=== PATIENT | female | born 1985 | race Two or more races ===

== ENCOUNTER → 2016-03-13 | Outpatient (REF) | payer OTHER ==
[~2016-03-13] MED LIST: no home meds
== END ==
LOC: M SFHCLERA 12:35
PROVIDERS: ATTEND Physician Assistant
DX: J02.9 Acute pharyngitis, unspecified (principal)

== ENCOUNTER 2019-07-23 07:11 | Emergency (ER) | payer OTHER ==
[~2019-07-23] VITALS: Ht 165.1 cm; Wt 79.5 kg
[2019-07-23 09:50] VITALS: BP 123/54
--- NOTE | 2019-07-23 09:51 | REP ---
PELVIC ULTRASOUND: Real-time sonographic evaluation of pelvis performed utilizing transabdominal and endovaginal technique. Uterus measures 10.1 x 5.0 x 7.0 cm. Endometrial thickness is 13 mm. No intrauterine gestational sac is seen. Right ovary measures 2.4 x 1.7 x 2.7 cm and left ovary 3.8 x 2.1 x 3.6 cm. Complex cystic structure left ovary measures 2.1 x 1.6 x 2.0 cm, possibly representing a complex corpus luteum. There is no evidence of ovarian torsion with duplex Doppler evaluation. There is no other evidence of adnexal mass or free fluid. Given beta hCG value of 258, differential diagnosis would include very early intrauterine , missed AB, or ectopic . Suggest correlation with serial quantitative beta hCG values and followup ultrasound as necessary. Electronically Signed by Lopez Eagle MD 07/26/2019 09:33 P
[2020-03-14] MEDS ORDERED: FAMO20TA PO (10:07)
== END 2019-07-23 09:51 | disposition home or self-care (01) ==
LOC: M ED 07:11
DX: Z34.81 Encounter for supervision of other normal pregnancy, first trimester (principal)

== ENCOUNTER 2019-08-06 07:52 | Emergency (ER) | payer OTHER ==
[~2019-08-06] VITALS: Ht 165.1 cm; Wt 75.3 kg
[2019-08-06] MEDS ORDERED: METOCLOPRAMIDE INJ 10MG/2ML VIAL (J2765 PER 1) IV ONE (08:30)
[2019-08-06] MEDS ORDERED: ACETAMINOPHEN 500 MG TAB PO ONE (08:30)
[2019-08-06] MEDS ORDERED: diphenhydrAMINE 50MG/ML VIAL (J1200) IV ONE (08:30)
[2019-08-06] MEDS ORDERED: NS 1,000 ML IV ONE (08:30)
[2019-08-06 09:26] LABS: BASO % 0.3 % (0.0-1.0); EOS # 0.1 10^3/uL (0.0-0.5); EOS % 1.2 % (0.0-3.0); HEMATOCRIT 35.7 % (36.0-47.0); HEMOGLOBIN 12.7 g/dl (12.0-15.5); LYMPH # 1.4 10^3/uL (1.5-5.0); LYMPH % 22.6 % (24.0-44.0); MEAN CORPUSCULAR HEMOGLOBIN 32.8 pg (27.0-33.0); MEAN CORPUSCULAR HGB CONC 35.6 g/dl (32.0-36.5); MEAN CORPUSCULAR VOLUME 92.2 fl (80.0-96.0); MONO # 0.5 10^3/uL (0.0-0.8); MONO % 8.2 % (0.0-5.0); NEUTROPHILS % 67.4 % (36.0-66.0); PLATELET COUNT, AUTOMATED 172 10^3/uL (150-450); RED BLOOD COUNT 3.87 10^6/uL (4.00-5.40)
[2019-08-06 10:18] LABS: ALBUMIN 3.6 GM/DL (3.2-5.2); ALT/SGPT 22 U/L (12-78); BILIRUBIN,DIRECT 0.1 MG/DL (0.0-0.2); BILIRUBIN,TOTAL 0.5 MG/DL (0.2-1.0); BLOOD UREA NITROGEN 17 MG/DL (7-18); CALCIUM LEVEL 8.6 MG/DL (8.5-10.1); CARBON DIOXIDE LEVEL 24 MEQ/L (21-32); CHLORIDE LEVEL 109 MEQ/L (98-107); CREATININE FOR GFR 0.59 MG/DL (0.55-1.30); GLOMERULAR FILTRATION RATE > 60.0 (>60); GLUCOSE, FASTING 80 MG/DL (70-100); HCG, SERUM QUANTITATIVE 28807 MIU/ML; LIPASE 141 U/L (73-393); POTASSIUM SERUM 3.8 MEQ/L (3.5-5.1); SODIUM LEVEL 138 MEQ/L (136-145); TOTAL PROTEIN 6.6 GM/DL (6.4-8.2)
[2019-08-06 10:51] VITALS: BP 107/58
== END 2019-08-06 10:50 | disposition home or self-care (01) ==
LOC: M ED 07:52
DX: O99.350 Diseases of the nervous system complicating pregnancy, unspecified trimester (principal); G44.209 Tension-type headache, unspecified, not intractable; O99.340 Other mental disorders complicating pregnancy, unspecified trimester; F41.9 Anxiety disorder, unspecified; O99.320 Drug use complicating pregnancy, unspecified trimester; F12.10 Cannabis abuse, uncomplicated; Z3A.00 Weeks of gestation of pregnancy not specified
CPT/HCPCS: 80048; 80076; 83690; 84702; 85025; 96374; 96375; 99284; J1200; J2765

== ENCOUNTER 2019-08-09 21:06 | Emergency (ER) | payer OTHER ==
[~2019-08-09] VITALS: Ht 165.1 cm; Wt 75.0 kg
[2019-08-09 21:06] VITALS: BP 123/68
[2019-08-09] MEDS ORDERED: [UNRECOGNIZED DRUG - OTHER] PO (21:28)
[2019-08-09] MEDS ORDERED: DIPH25TA4 PO (21:28)
[2019-08-09] MEDS ORDERED: NS 1,000 ML IV ONE (22:15)
[2019-08-09] MEDS ORDERED: METOCLOPRAMIDE INJ 10MG/2ML VIAL (J2765 PER 1) IV ONE (22:15)
[2019-08-09 22:44] LABS: BASO % 0.4 % (0.0-1.0); EOS # 0.1 10^3/uL (0.0-0.5); HEMATOCRIT 35.4 % (36.0-47.0); HEMOGLOBIN 12.6 g/dl (12.0-15.5); LYMPH # 1.7 10^3/uL (1.5-5.0); LYMPH % 20.9 % (24.0-44.0); MEAN CORPUSCULAR HEMOGLOBIN 32.9 pg (27.0-33.0); MEAN CORPUSCULAR HGB CONC 35.6 g/dl (32.0-36.5); MEAN CORPUSCULAR VOLUME 92.4 fl (80.0-96.0); MONO # 0.6 10^3/uL (0.0-0.8); NEUTROPHILS # 5.6 10^3/uL (1.5-8.5); NEUTROPHILS % 70.3 % (36.0-66.0); PLATELET COUNT, AUTOMATED 185 10^3/uL (150-450); RED BLOOD COUNT 3.83 10^6/uL (4.00-5.40)
[2019-08-09 23:13] LABS: ALBUMIN 3.8 GM/DL (3.2-5.2); BILIRUBIN,DIRECT 0.2 MG/DL (0.0-0.2); BILIRUBIN,TOTAL 0.7 MG/DL (0.2-1.0); TOTAL PROTEIN 6.9 GM/DL (6.4-8.2)
[2020-03-14] MEDS ORDERED: FAMO20TA PO (10:07)
== END 2019-08-09 23:00 | disposition left against medical advice (07) ==
LOC: M ED 21:06
DX: R11.2 Nausea with vomiting, unspecified (principal); R19.7 Diarrhea, unspecified; Z53.20 Procedure and treatment not carried out because of patient's decision for unspecified reasons
CPT/HCPCS: 80047; 80076; 83690; 84702; 85025; 99283; J2765

== ENCOUNTER → 2019-08-11 | Outpatient (REF) | payer OTHER ==
[~2019-08-11] MED LIST changes: +DIPH25TA4 PO; +MACR100C43 PO; +MULTTAB20 PO; +[UNRECOGNIZED DRUG - OTHER] PO
[2019-08-11 12:49] LABS: HEMATOCRIT 38.5 % (36.0-47.0); HEMOGLOBIN 13.7 g/dl (12.0-15.5); MEAN CORPUSCULAR HEMOGLOBIN 33.3 pg (27.0-33.0); MEAN CORPUSCULAR HGB CONC 35.6 g/dl (32.0-36.5); MEAN CORPUSCULAR VOLUME 93.4 fl (80.0-96.0); PLATELET COUNT, AUTOMATED 193 10^3/uL (150-450); RED BLOOD COUNT 4.12 10^6/uL (4.00-5.40); WHITE BLOOD COUNT 8.3 10^3/uL (4.0-10.0)
[2019-08-11 13:20] LABS: TOTAL PROTEIN,RANDOM URINE 14.1 MG/DL (0.0-12.0)
[2019-08-11 13:53] LABS: HEPATITIS C VIRUS ABY INDEX 0.3 INDEX (<0.8); HIV 1&2 SCREEN CENTAUR NEGATIVE (NEGATIVE)
[2019-08-11 14:12] LABS: ERYTHROCYTE SEDIMENTATION RATE 18 mm/hr (0-20)
[2019-08-12 13:08] LABS: CHLAMYDIA DNA AMPLIFICATION NEGATIVE (NEGATIVE); GC DNA AMPLIFICATION NEGATIVE (NEGATIVE)
[2019-08-26 13:14] LABS: ANTINUCLEAR ANTIBODIES DIRECT Negative (Negative)
== END ==
LOC: M PLALAB 11:00
PROVIDERS: ATTEND Advanced Practice Midwife
DX: O34.211 Maternal care for low transverse scar from previous cesarean delivery (principal)

== ENCOUNTER 2019-10-10 23:28 | Emergency (ER) | payer OTHER ==
[~2019-10-10] VITALS: Ht 165.1 cm; Wt 73.4 kg
[~2019-10-10 23:28] MED LIST changes: -MACR100C43 PO; -MULTTAB20 PO
[2019-10-10] MEDS ORDERED: MULTTAB20 PO (23:36)
--- NOTE | 2019-10-11 02:29 | REPVR ---
PROCEDURE INFORMATION: Exam: US , Limited Exam date and time: 10/11/2019 2:10 AM Age: 34 years old Clinical indication: complicated by abdominal or pelvic pain; Lower; Second trimester; Gestational age or lmp: 06/25/19; ; Additional info: Strain TECHNIQUE: Imaging protocol: Real-time ultrasound of the maternal uterus with image documentation. Exam focused on the clinical indication. COMPARISON: CT ABD PELVIS W/O CONTRAST 10/25/2015 2:10 PM FINDINGS: Gestation: Single viable intrauterine gestation. heart rate: heart rate is 149 bpm. Placenta: Posterior low-lying placenta. Amniotic fluid index: Amniotic fluid index is 8 9 cm. MATERNAL: Cervix: Cervical length is 3.7 cm. IMPRESSION: Single viable intrauterine gestation. Electronically signed by: Sammy Jean On 10/11/2019 02:29:55 AM
[2019-10-11 03:28] VITALS: BP 95/52
== END 2019-10-11 03:30 | disposition home or self-care (01) ==
LOC: M ED 23:28
DX: O9A.212 Injury, poisoning and certain other consequences of external causes complicating pregnancy, second trimester (principal); S39.011A Strain of muscle, fascia and tendon of abdomen, initial encounter; R11.10 Vomiting, unspecified; X50.9XXA Other and unspecified overexertion or strenuous movements or postures, initial encounter; Y92.89 Other specified places as the place of occurrence of the external cause; Z3A.15 15 weeks gestation of pregnancy

== ENCOUNTER 2019-10-25 09:03 | Emergency (ER) | payer OTHER ==
[~2019-10-25] VITALS: Ht 165.1 cm; Wt 73.9 kg
[~2019-10-25 09:03] MED LIST changes: +MULTTAB20 PO
[2019-10-25] MEDS ORDERED: NITROFURANTOIN (MACROBID) 100 MG CAP PO ONE (10:45)
[2019-10-25] MEDS ORDERED: MACR100C43 PO (10:45)
[2019-10-25 10:51] VITALS: BP 107/56
== END 2019-10-25 10:57 | disposition home or self-care (01) ==
LOC: M ED 09:03
DX: O23.42 Unspecified infection of urinary tract in pregnancy, second trimester (principal); Z3A.17 17 weeks gestation of pregnancy

== ENCOUNTER → 2019-11-08 | Outpatient (CLI) | payer OTHER ==
[~2019-11-08] MED LIST changes: +MACR100C43 PO
--- NOTE | 2019-11-18 13:18 | REP ---
COMPLETE OBSTETRICAL ULTRASOUND CLINICAL: Anatomical evaluation. FINDINGS: Ultrasound examination demonstrates a single live intrauterine in cephalic presentation. motion was identified by the technologist. Placenta noted posteriorly and grade 1 without placenta previa or abruption. Amniotic fluid volume is normal. Cervix measures 3.9 cm in length and appears closed. The placenta tip measures 2.2 cm from the closed internal os. Gestational age by last menstrual period (LMP) 19 weeks 3 days with estimated date of delivery 03/31/2020 Gestational age by current measurements 19 weeks 6 days with estimated date of delivery 03/28/2020. heart rate 149 beats per minute. Estimated weight 316 grams (71st percentile). Anatomical assessment is complete and normal. Visualized structures include cranium, cerebellum, ventricles, choroid plexus, posterior fossa, facial features, four chamber heart/ventricular outflow tracts, diaphragm, stomach, kidneys/bladder, spine, extremities, and three-vessel cord. IMPRESSION: Single live intrauterine in cephalic presentation demonstrating appropriate estimated weight and growth. Anatomical assessment is complete and normal. No gross abnormalities are identified. MTDD
== END ==
LOC: M WHC 12:58
PROVIDERS: ATTEND Advanced Practice Midwife
DX: Z34.82 Encounter for supervision of other normal pregnancy, second trimester (principal); Z3A.19 19 weeks gestation of pregnancy

== ENCOUNTER → 2019-12-29 | Outpatient (REF) | payer OTHER ==
[2019-12-29 13:49] LABS: HEMATOCRIT 31.2 % (36.0-47.0); HEMOGLOBIN 10.9 g/dl (12.0-15.5); MEAN CORPUSCULAR HEMOGLOBIN 33.7 pg (27.0-33.0); MEAN CORPUSCULAR HGB CONC 34.9 g/dl (32.0-36.5); MEAN CORPUSCULAR VOLUME 96.6 fl (80.0-96.0); PLATELET COUNT, AUTOMATED 166 10^3/uL (150-450); RED BLOOD COUNT 3.23 10^6/uL (4.00-5.40); WHITE BLOOD COUNT 7.8 10^3/uL (4.0-10.0)
== END ==
LOC: M PLALAB 08:41
PROVIDERS: ATTEND Advanced Practice Midwife
DX: O34.211 Maternal care for low transverse scar from previous cesarean delivery (principal)

== ENCOUNTER → 2020-03-01 | Outpatient (REF) | payer OTHER | LOC: M PLALAB 10:33 | PROVIDERS: ATTEND Obstetrics & Gynecology | DX: Z3A.36 36 weeks gestation of pregnancy (principal) ==

== ENCOUNTER → 2020-03-14 | Outpatient (CLI) | payer OTHER ==
[~2020-03-14] MED LIST changes: +FAMO20TA PO; +IBUP80TA PO; +OXYC1TAB23 PO
== END ==
LOC: M LABSMTC 09:35
PROVIDERS: ATTEND Anesthesiology
DX: Z01.812 Encounter for preprocedural laboratory examination (principal); Z20.822 Contact with and (suspected) exposure to COVID-19

== ENCOUNTER 2020-03-21 05:08 | Inpatient (IN) | payer OTHER ==
[2020-03-21] VITALS (7 sets, daily range): BP systolic 107–123; BP diastolic 61–71
[~2020-03-21] VITALS: Ht 165.1 cm; Wt 86.5 kg
[~2020-03-21 05:08] MED LIST changes: -IBUP80TA PO; -OXYC1TAB23 PO
--- OUTSIDE RECORDS SUMMARY | 2020-03-21 05:12 | CCD ---
Author Author [facility] Organization [facility] Address Unknown Phone Unavailable Care Team Providers Care Turning Lathe Tender Name Role Phone Michelle Pringle Unavailable PROBLEMS Type Condition ICD9-CM Code [id number] Code Onset Dates Condition S tatus SNOMED Code Notes Problem Supervision of other normal Z34.80 Ac tive [id number] ALLERGIES Allergen (clinical drug ingredient) Drug/Non Drug Allergy do cumented on EMR Reaction Allergy Type Onset Date Status Latex Unknown Non Drug Allergy Active ENCOUNTERS from 1986 to 2020-01-18 Encounter Location Date Provider Diagnosis [facility] [address] [place] [phone] Dec, Michelle Pringle 27 weeks gestation o f Z3A.27 ; Maternal care due to low transverse uterine scar from previous delivery O34.211 and Fatigue during in second trimester O26.812 IMMUNIZATIONS No Information SOCIAL HISTORY Tobacco Use: Social History Observation Description Date Details (start date - stop date) Never Smoker Sex Assigned At : Social History Observation Description Sex Assigned At Unknown Alcohol Screening: Question Answer Notes Did you have a drink containing alcohol in the past year? No Points 0 Interpretation Negative Tobacco Use: Question Answer Notes Are you a: never smoker REASON FOR REFERRAL No Information VITAL SIGNS Weight 171.6 lbs Dec, Height 65 in Dec, BMI 28.556 kg/m2 Dec, Blood pressure systolic 110 mm Hg Dec, Blood pressure diastolic 64 mm Hg Dec, MEDICATIONS Medication SIG (Take, Route, Frequency, Duration) Notes Start Da te End Date Status Vitamins 28-0.8 MG 1 tablet Orally Once a day Active PROCEDURES No Information RESULTS No Results REASON FOR VISIT 4 WK PN MEDICAL (GENERAL) HISTORY Type Description Date Medical History anxiety depression Medical History asthma Medical History lupus Surgical History section x 3 Surgical History wisdom teeth Hospitalization History childbirth Goals Section No Information Health Concerns No Information MEDICAL EQUIPMENT No Information MENTAL STATUS No Information FUNCTIONAL STATUS No Information ASSESSMENTS Encounter Date Diagnosis Assessment Notes Treatment Notes Treatm ent Clinical Notes Dec, 27 weeks gestation of (ICD-10 - Z3A.27 ) Dec, Maternal care due to low tra nsverse uterine scar from previous delivery (ICD-10 - O34.211) Dec, Fatigue during in second trimester (IC D-10 - O26.812) PLAN OF TREATMENT Next Appt Details 4 Weeks Reason:PN Provider Name:Minesh Marshall, 2020-01-27 11:40:00 AM, [address] [place] [address], [phone], Provider Name:Minesh Marshall, 2020-03-08 01:20:00 PM, [address] [place] [address], [phone], Provider Name:Minesh Marshall, 2020-03-21 07:30:00 AM, [address] [place] [address], [phone], Provider Name:Maria Mayes, 2020-03-21 07:30:00 AM, [address] [place] [address], [phone], Provider Name:Minesh Marshall, 2020-04-04 09:40:00 AM, [address] [place] [address], [phone], Provider Name:Minesh Marshall, 2020-05-15 09:40:00 AM, [address] [place] [address], [phone], Follow Up:4 WeeksPN Insurance Providers Payer Name Payer Address Payer Phone Insured Name Patient Relati onship to Insured Coverage Start Date Coverage End Date [facility] [employer] CLAIM[employer] DEPT [address] [place] [phone] ALLISON MONTE self
--- OUTSIDE RECORDS SUMMARY | 2020-03-21 05:12 | CCD ---
Author Author [facility] Organization [facility] Address Unknown Phone Unavailable Care Team Providers Care Radiator Tester Name Role Phone Michelle Pringle Unavailable PROBLEMS Type Condition ICD9-CM Code [id number] Code Onset Dates Condition S tatus SNOMED Code Notes Problem Supervision of other normal Z34.80 Ac tive [id number] ALLERGIES Allergen (clinical drug ingredient) Drug/Non Drug Allergy do cumented on EMR Reaction Allergy Type Onset Date Status Latex Unknown Non Drug Allergy Active ENCOUNTERS from 1986 to 2020-01-21 Encounter Location Date Provider Diagnosis [facility] [address] [place] [phone] Dec, Michelle Pringle Decreased move ment affecting management of in third trimester O36.8130 ; Previous delivery affecting O34.219 and 29 weeks gestation of Z3A.29 IMMUNIZATIONS No Information SOCIAL HISTORY Tobacco Use: [...] FOR REFERRAL No Information VITAL SIGNS Weight 173 lbs Dec, Height 65 in Dec, BMI 28.789 kg/m2 Dec, Blood pressure systolic 118 mm Hg Dec, Blood pressure diastolic 72 mm Hg Dec, MEDICATIONS Medication SIG (Take, Route, Frequency, Duration) Notes Start Da te End Date Status Vitamins 28-0.8 MG 1 tablet Orally Once a day Active PROCEDURES No Information RESULTS No Results REASON FOR VISIT 28WK WELLNESS CHECK MEDICAL (GENERAL) HISTORY Type Description Date Medical History anxiety depression Medical History asthma Medical History lupus Surgical History section x 3 Surgical History wisdom teeth Hospitalization History childbirth Goals Section No Information Health Concerns No Information MEDICAL EQUIPMENT No Information MENTAL STATUS No Information FUNCTIONAL STATUS No Information ASSESSMENTS Encounter Date Diagnosis Assessment Notes Treatment Notes Treatm ent Clinical Notes Dec, Decreased movement aff ecting management of in third trimester (ICD-10 - O36.8130) Dec, Previous delivery affecting pre gnancy (ICD-10 - O34.219) Dec, 29 weeks gestation of (ICD-10 - Z3A.29 ) PLAN OF TREATMENT Next Appt Details 2 Weeks Reason:PN Provider Name:Minesh Marshall, 2020-01-27 11:40:00 AM, [address] [place] [address], [phone], Provider Name:Minesh Marshall, 2020-03-08 01:20:00 PM, [address] [place] [address], [phone], Provider Name:Minesh Marshall, 2020-03-21 07:30:00 AM, [address] [place] [address], [phone], Provider Name:Maria Mayes, 2020-03-21 07:30:00 AM, [address] [place] [address], [phone], Provider Name:Minesh Marshall, 2020-04-04 09:40:00 AM, [address] [place] [address], [phone], Provider Name:Minesh Marshall 2020-05-15 09:40:00 AM, [address] [place] [address], [phone], Follow Up:2 WeeksPN Insurance Providers Payer Name Payer Address Payer Phone Insured Name Patient Relati onship to Insured Coverage Start Date Coverage End Date [facility] [employer] CLAIM[employer] DEPT [place] [phone] ALLISON MONTE self
--- OUTSIDE RECORDS SUMMARY | 2020-03-21 05:12 | CCD ---
Author Author [facility] Organization [facility] Address Unknown Phone Unavailable Care Team Providers Care Mechanical Service Technician Name Role Phone Michelle Pringle Unavailable PROBLEMS Type Condition ICD9-CM Code [id number] Code Onset Dates Condition S tatus SNOMED Code Notes Problem Supervision of other normal Z34.80 Ac tive [id number] ALLERGIES Allergen (clinical drug ingredient) Drug/Non Drug Allergy do cumented on EMR Reaction Allergy Type Onset Date Status Latex Unknown Non Drug Allergy Active ENCOUNTERS from 1986 to 2020-03-10 Encounter Location Date Provider Diagnosis [facility] [address] [place] [phone] Feb, Michelle Pringle 36 weeks gestation o f Z3A.36 and Maternal care due to low transverse uterine scar from previous delivery O34.211 IMMUNIZATIONS Vaccine Route Administration Date Status TDAP 0.5mL (Boostrix) IM Intramuscular Feb 09, 2020 Administe red SOCIAL HISTORY Tobacco Use: Social History Observation [...] FOR REFERRAL No Information VITAL SIGNS Weight 179 lbs Feb, Height 65 in Feb, BMI 29.787 kg/m2 Feb, Blood pressure systolic 118 mm Hg Feb, Blood pressure diastolic 78 mm Hg Feb, MEDICATIONS Medication SIG (Take, Route, Frequency, Duration) Notes Start Da te End Date Status Vitamins 28-0.8 MG 1 tablet Orally Once a day Active Pepcid AC Maximum Strength 20 MG 1 tablet at bedtime a s needed Orally Once a day for 30 day(s) Feb, Active PROCEDURES No Information RESULTS Component Value Reference Range GROUP B STREP CULTURE Reviewed date:03/06/2020 09:13:43 Interpretation: Performing Lab:[facility], [facility] [address] [id number] , ,[place] [address] REASON FOR VISIT 3WK PN MEDICAL (GENERAL) HISTORY Type Description Date Medical History anxiety depression Medical History asthma Medical History lupus Surgical History section x 3 Surgical History wisdom teeth Hospitalization History childbirth Goals Section No Information Health Concerns No Information MEDICAL EQUIPMENT No Information MENTAL STATUS No Information FUNCTIONAL STATUS No Information ASSESSMENTS Encounter Date Diagnosis Assessment Notes Treatment Notes Treatm ent Clinical Notes Feb, 36 weeks gestation of (ICD-10 - Z3A.36 ) Feb, Maternal care due to low tra nsverse uterine scar from previous delivery (ICD-10 - O34.211) PLAN OF TREATMENT Medication Medication Name Sig Start Date Stop Date Pepcid AC Maximum Strength 20 MG 1 tablet at bedtime a s needed Orally Once a day for 30 day(s) Feb, Next Appt Details 2 Weeks Reason:PN Provider Name:Maria Mayes, 2020-03-15 10:40:00 AM, [address] [place] [address], [phone], Provider Name:Minesh Marshall 2020-03-21 07:30:00 AM, [address] [place] [address], [phone], Provider Name:Maria Mayes, 2020-03-21 07:30:00 AM, [address] [place] [address], [phone], Provider Name:Minesh Marshall, 2020-04-05 02:20:00 PM, [address] [place] [address], [phone], Provider Name:Minesh Marshall 2020-05-15 09:40:00 AM, [address] [place], [place] [address], [place], [phone], Follow Up:2 WeeksPN Insurance Providers Payer Name Payer Address Payer Phone Insured Name Patient Relati onship to Insured Coverage Start Date Coverage End Date [facility] [address] [facility] [phone] ROSEANNA MONTE Y DEANNA self
--- OUTSIDE RECORDS SUMMARY | 2020-03-21 05:12 | CCD ---
Author Author [facility] Organization [facility] Address Unknown Phone Unavailable Care Team Providers Care Teacher Counselor Name Role Phone Rolando Minesh Unavailable PROBLEMS Type Condition ICD9-CM Code UQS20-BP Code Onset Dates Condition S tatus SNOMED Code Notes Problem Supervision of other normal Z34.80 Ac tive [id number] ALLERGIES Allergen (clinical drug ingredient) Drug/Non Drug Allergy do cumented on EMR Reaction Allergy Type Onset Date Status Latex Unknown Non Drug Allergy Active ENCOUNTERS from 1986 to 2020-01-06 Encounter Location Date Provider Diagnosis [facility] [address] [place] [phone] Dec, Minesh Marshall IMMUNIZATIONS No Information SOCIAL HISTORY Tobacco Use: [...] REASON FOR REFERRAL No Information VITAL SIGNS No information MEDICATIONS Medication SIG (Take, Route, Frequency, Duration) Notes Start Da te End Date Status Vitamins 28-0.8 MG 1 tablet Orally Once a day Active PROCEDURES No Information RESULTS No Results REASON FOR VISIT AUTHORIZATION MEDICAL (GENERAL) HISTORY Type Description Date Medical History anxiety depression Medical History asthma Medical History lupus Surgical History section x 3 Surgical History wisdom teeth Hospitalization History childbirth Goals Section No Information Health Concerns No Information MEDICAL EQUIPMENT No Information MENTAL STATUS No Information FUNCTIONAL STATUS No Information ASSESSMENTS No Information PLAN OF TREATMENT Next Appt Details Provider Name:Minesh Marshall 2020-01-27 11:40:00 AM, [address] [place] [address], [phone], Provider Name:Minesh Marshall, 2020-03-08 01:20:00 PM, [address] [place] [address], [phone], Provider Name:Minesh Marshall, 2020-03-21 07:30:00 AM, [address] [place] [address], [phone], Provider Name:Maria Mayes, 2020-03-21 07:30:00 AM, [address] [place] [address], [phone], Provider Name:Minesh Marshall, 2020-04-04 09:40:00 AM, [address] [place] [address], [phone], Provider Name:Minesh Marshall, 2020-05-15 09:40:00 AM, [address] [place] [address], [phone], Insurance Providers Payer Name Payer Address Payer Phone Insured Name Patient Relati onship to Insured Coverage Start Date Coverage End Date [facility] [employer] CLAIMS DEPT [address] [facility] [phone] ALLISON MONTE self
--- OUTSIDE RECORDS SUMMARY | 2020-03-21 05:12 | CCD ---
Author Author [facility] Organization [facility] Address Unknown Phone Unavailable Care Team Providers Care Asbestos Shingle Inspector Name Role Phone Michelle Pringle Unavailable PROBLEMS Type Condition ICD9-CM Code SJC39-AV Code Onset Dates Condition S tatus SNOMED Code Notes Problem Supervision of other normal Z34.80 Ac tive [id number] ALLERGIES Allergen (clinical drug ingredient) Drug/Non Drug Allergy do cumented on EMR Reaction Allergy Type Onset Date Status Latex Unknown Non Drug Allergy Active ENCOUNTERS from 1986 to 2020-02-11 Encounter Location Date Provider Diagnosis [facility] [place] [address] Jan, Michelle Pringle Maternal care due to low transverse uterine scar from previous delivery O34.211 ; 33 weeks gestation of Z3A.33 and Encounter for immunization Z23 IMMUNIZATIONS Vaccine Route Administration Date Status TDAP [...] FOR REFERRAL No Information VITAL SIGNS Weight 174.2 lbs Jan, Weight-kg 79.02 kg Jan, Height 65 in Jan, BMI 28.988 kg/m2 Jan, Blood pressure systolic 116 mm Hg Jan, Blood pressure diastolic 62 mm Hg Jan, MEDICATIONS Medication SIG (Take, Route, Frequency, Duration) Notes Start Da te End Date Status Vitamins 28-0.8 MG 1 tablet Orally Once a day Active PROCEDURES from 1986 to 2020-02-11 Procedure Date Ordered Result Body Site Immunization: Boostrix 0.5mL IM (TDAP) 2020-02-09 N/A RESULTS No Results REASON FOR VISIT 2WK PN MEDICAL (GENERAL) HISTORY Type Description Date Medical History anxiety depression Medical History asthma Medical History lupus Surgical History section x 3 Surgical History wisdom teeth Hospitalization History childbirth Goals Section No Information Health Concerns No Information MEDICAL EQUIPMENT No Information MENTAL STATUS No Information FUNCTIONAL STATUS No Information ASSESSMENTS Encounter Date Diagnosis Assessment Notes Treatment Notes Treatm ent Clinical Notes Jan, Maternal care due to low tra nsverse uterine scar from previous delivery (ICD-10 - O34.211) Jan, 33 weeks gestation of (ICD-10 - Z3A.33 ) Jan, Encounter for immunization (ICD-10 - Z23) PLAN OF TREATMENT Next Appt Details 3 Weeks Reason:PN Provider Name:Michelle Pringle, 2020-02 11:00:00 AM, [address] [place] [address], [phone], Provider Name:Minesh Marshall, 2020-03-08 01:20:00 PM, [address] [place] [address], [phone], Provider Name:Minesh Marshall, 2020-03-21 07:30:00 AM, [address] [place] [address], [phone], Provider Name:Maria Mayes, 2020-03-21 07:30:00 AM, [address] [place] [address], [phone], Provider Name:Minesh Marshall, 2020-04-04 09:40:00 AM, [address] [place] [address], [phone], Provider Name:Minesh Marshall, 2020-05-15 09:40:00 AM, [address] [place] [address], [phone], Follow Up:3 WeeksPN Insurance Providers Payer Name Payer Address Payer Phone Insured Name Patient Relati onship to Insured Coverage Start Date Coverage End Date [facility] [employer] CLAIMS DEPT [address] [facility] [phone] ALLISON MONTE self
--- OUTSIDE RECORDS SUMMARY | 2020-03-21 05:12 | CCD ---
Author Author [facility] Organization [facility] Address Unknown Phone Unavailable Care Team Providers Care Commission Sales Associate Name Role Phone Martita BETTS Unavailable Unavailable CHAPIS ETIENNE Unavailable Unavailable Re-disclosure Warning The records that you are about to access may contain information from federally-assisted alcohol or drug abuse programs. If such information is present, then the following federally mandated warning applies: This information has been disclosed to you from records protected by federal confidentiality rules (42 CFR part 2). The federal rules prohibit you from making any further disclosure of this information unless further disclosure is expressly permitted by the written consent of the person to whom it pertains or as otherwise permitted by 42 CFR part 2. A general authorization for the release of medical or other information is NOT sufficient for this purpose. The Federal rules restrict any use of the information to criminally investigate or prosecute any alcohol or drug abuse patient.The records that you are about to access may contain highly sensitive health information, the redisclosure of which is protected by Article 27-F of the [facility] Public Health law. If you continue you may have access to information: Regarding HIV / AIDS; Provided by facilities licensed or operated by the [facility] Office of Mental Health; or Provided by the [facility] Office for People With Developmental Disabilities. If such information is present, then the following [facility] mandated warning applies: This information has been disclosed to you from confidential records which are protected by state law. State law prohibits you from making any further disclosure of this information without the specific written consent of the person to whom it pertains, or as otherwise permitted by law. Any unauthorized further disclosure in violation of state law may result in a fine or chcf sentence or both. A general authorization for the release of medical or other information is NOT sufficient authorization for further disc losure. Encounters Encounter Providers Location Date Indications Data Source(s ) ( ESTOB) [facility] Est OB [address] [place] [address] 03/08/2020 12:00:00 AM EST [facility]CW1 [facility] ( ESTOB) [facility] OB [address] [place] [address] 03/01/2020 12:00:00 AM EST eCW1 ([facility]) ( ESTOB) [facility] OB [address] [place] [address] 02/09/2020 12:00:00 AM EST eCW1 ([facility]) ( ESTOB) [facility] [address] [place] [address] 01/17/2020 12:00:00 AM EST eCW1 ([facility]) Unknown [address] [facility] [address] 01/06/2020 12:00:00 AM EST eCW1 ([facility]) ( ESTOB) [facility] Est OB [address] [place] [address] 12/29/2019 12:00:00 AM EST eCW1 ([facility]) (WC ESTOB) [facility] Est OB [address] [place] [address] 12/01/2019 12:00:00 AM EDT eCW1 ([facility]) ( COBMD) [facility] Complicated OB for MD Only [address] [place] [address] 09/08/2019 12:00:00 AM EDT eCW1 (Formerly [facility]) Outpatient 08/06/2019 05:36:00 AM EDT [facility] Outpatient Attender: EUGENIO BETTS 03/25/2019 01:00:00 PM [facility] Outpatient Attender: CHAPIS ETIENNE 03/25/2019 09:30:00 AM [facility] Immunizations Vaccine Date Status Description Data Source(s) Tdap 02/09/2020 10:34:00 AM EST completed e CW1 ([facility]) Tdap 02/09/2020 10:34:00 AM EST completed e CW1 ([facility]) Tdap 02/09/2020 10:34:00 AM EST completed e CW1 ([facility]) Medications Medication Brand Name Start Date Product Form Dose Route Admi nistrative Instructions Pharmacy Instructions Status Indications Reaction Description Data Source(s) Famotidine 20 MG Oral Tablet [Pepcid] Pepcid AC Maximu m Strength 20 MG Pepcid AC Maximum Strength 20 MG 03/08/2020 12:00:00 AM EST 1.0 {tablet_at_bedtime_as_needed} active Pe pcid AC Maximum Strength 20 MG eCW1 ([facility]) Famotidine 20 MG Oral Tablet [Pepcid] Pepcid AC Maximu m Strength 20 MG Pepcid AC Maximum Strength 20 MG 03/08/2020 12:00:00 AM EST 1.0 {tablet_at_bedtime_as_needed} active Pe pcid AC Maximum Strength 20 MG eCW1 ([facility]) Insurance Providers Payer name Policy type / Coverage type Policy ID Covered democrat ID Covered democrat's relationship to hodges Policy [place] Plan Information P [facility] [id number] SP [id number] SAM [id number] SP [id number] [place] [id number] S [id number] SAM [id number] SP [id number] UN COMMUNITY PLAN [facility] [id number] SP [id number] SAM CARE MEDICAID [id number] S [id number] [place] [id number] 18 [id number] UN AMERICHOICE XIX -O [id number] 18 [id number] Epping Medicaid F [id number] SELF 7 [id number] Epping Medicaid F [id number] SELF 7 [id number] Sam Essential Plan F [id number] SELF [id number] SAM I [id number] Self [id number] [facility] COMMUNITY PLAN [facility] [id number] SP [id number] MEDICAID [id number] SP [id number] SELF PAY ONLY SP1 SP [id number] SELF PAY UNAVAILABLE SP UNAVAILA BLE [place] XIX MAN [id number] 18 [id number] Problems, Conditions, and Diagnoses Code Display Name Description Problem Type Effective Dates Data Source(s) Z34.80 care Supervision of other normal P roblem 08/09/2019 12:00:00 AM EDT eCW1 ([facility]) F41.1 Generalized anxiety disorder GENERALIZED ANXIETY DISOR RAFAEL Diagnosis 03/25/2019 09:30:00 AM [facility] F32.9 Major depressive disorder, single episod e, unspecified MAJOR DEPRESSIVE DISORDER, SINGLE EPISODE, UNSPECIFIED Diagnosis 03/25/2019 09:30:00 AM [facility] Surgeries/Procedures Procedure Description Date Indications Data Source(s) Immunization: Boostrix 0.5mL IM (TDAP) 02/09/2020 12:0 0:00 AM EST eCW1 ([facility]) Results ID Date Data Source [id number] 03/14/2020 12:00:00 PM EST [facility] Name Value Range Interpretation Code Description Data Brie rce(s) Supporting Document(s) SARS coronavirus 2 RNA Not Detected [facility] [place] This lab was ordered by [facility] and reported by [facility]. ID Date Data Source GROUP B STREP CULTURE 03/01/2020 12:00:00 AM EST eCW1 (Replaced by [facility]) Name Value Range Interpretation Code Description Data Brie rce(s) Supporting Document(s) GROUP B STREP CULTURE eCW1 ([facility]) Procedure Social History Code Duration Value Status Description Data Source(s ) Smoking 03/09/2020 12:00:00 AM EST Never Smoker completed Never S moker eCW1 ([facility]) Smoking 03/09/2020 12:00:00 AM EST Never Smoker completed Never S moker eCW1 ([facility]) Smoking 02/09/2020 12:00:00 AM EST Never Smoker completed Never S moker eCW1 ([facility]) Smoking 01/19/2020 12:00:00 AM EST Never Smoker completed Never S moker eCW1 ([facility]) Smoking 01/17/2020 12:00:00 AM EST Never Smoker completed Never S moker eCW1 ([facility]) Smoking 12/28/2019 12:00:00 AM EST Never Smoker completed Never S moker eCW1 ([facility]) Smoking 12/01/2019 12:00:00 AM EDT Never Smoker completed Never S moker eCW1 ([facility]) Smoking 09/08/2019 12:00:00 AM EDT Never Smoker completed Never S moker eCW1 ([facility]) Vital Signs ID Date Data Source UNK Name Value Range Interpretation Code Description Data Source(s) Diastolic blood pressure 86 mm[Hg] 86 mm[Hg] eCW1 ([facility]) Systolic blood pressure 122 mm[Hg] 122 mm[Hg] e CW1 ([facility]) Body mass index (BMI) [Ratio] 30.752 kg/m2 30.7 52 kg/m2 eCW1 ([facility]) Body height 65 [in_i] 65 [in_i] eCW1 ([facility]) Body weight 83.82 kg 83.82 kg eCW1 ([facility]) Body weight 184.8 [lb_av] 184.8 [lb_av] eCW1 ([facility]) Diastolic blood pressure 78 mm[Hg] 78 mm[Hg] eCW1 ([facility]) Systolic blood pressure 118 mm[Hg] 118 mm[Hg] e CW1 ([facility]) Body mass index (BMI) [Ratio] 29.787 kg/m2 29.7 87 kg/m2 eCW1 ([facility]) Body height 65 [in_i] 65 [in_i] eCW1 ([facility]) Body weight 179 [lb_av] 179 [lb_av] eCW1 (Replaced by [facility]) Diastolic blood pressure 62 mm[Hg] 62 mm[Hg] eCW1 ([facility]) Systolic blood pressure 116 mm[Hg] 116 mm[Hg] e CW1 ([facility]) Body mass index (BMI) [Ratio] 28.988 kg/m2 28.9 88 kg/m2 eCW1 ([facility]) Body height 65 [in_i] 65 [in_i] eCW1 ([facility]ly [facility]) Body weight 79.02 kg 79.02 kg eCW1 ([facility]ly [facility]) Body weight 174.2 [lb_av] 174.2 [lb_av] eCW1 ([facility]) Diastolic blood pressure 72 mm[Hg] 72 mm[Hg] eCW1 ([facility]) Systolic blood pressure 118 mm[Hg] 118 mm[Hg] e CW1 ([facility]) Body mass index (BMI) [Ratio] 28.789 kg/m2 28.7 89 kg/m2 eCW1 ([facility]) Body height 65 [in_i] 65 [in_i] eCW1 (Formerly [facility]) Body weight 173 [lb_av] 173 [lb_av] eCW1 (Replaced by [facility]) Diastolic blood pressure 64 mm[Hg] 64 mm[Hg] eCW1 ([facility]) Systolic blood pressure 110 mm[Hg] 110 mm[Hg] e CW1 ([facility]) Body mass index (BMI) [Ratio] 28.556 kg/m2 28.5 56 kg/m2 eCW1 ([facility]) Body height 65 [in_i] 65 [in_i] eCW1 ([facility]) Body weight 171.6 [lb_av] 171.6 [lb_av] eCW1 ([facility]) Diastolic blood pressure 68 mm[Hg] 68 mm[Hg] eCW1 ([facility]) Systolic blood pressure 122 mm[Hg] 122 mm[Hg] e CW1 ([facility]) Body mass index (BMI) [Ratio] 27.291 kg/m2 27.2 91 kg/m2 W1 ([facility]) Body height 65 [in_i] 65 [in_i] eCW1 ([facility]) Body weight 164 [lb_av] 164 [lb_av] eCW1 (Replaced by [facility]) Diastolic blood pressure 70 mm[Hg] 70 mm[Hg] eCW1 ([facility]) Systolic blood pressure 110 mm[Hg] 110 mm[Hg] e CW1 ([facility]) Body mass index (BMI) [Ratio] 26.858 kg/m2 26.8 58 kg/m2 eCW1 ([facility]) Body height 65 [in_i] 65 [in_i] eCW1 ([facility]) Body weight 161.4 [lb_av] 161.4 [lb_av] eCW1 ([facility]) Patient Treatment Plan of Care Planned Activity Planned Date Details Description Data Source (s) Famotidine 20 MG Oral Tablet [Pepcid] 03/08/2020 12:00:00 AM EST eCW1 ([facility])
--- OUTSIDE RECORDS SUMMARY | 2020-03-21 05:12 | CCD ---
Author Author [facility] Organization [facility] Address Unknown Phone Unavailable Care Team Providers Care Financial Intern Name Role Phone Minesh Marshall Unavailable PROBLEMS Type Condition ICD9-CM Code [id number] Code Onset Dates Condition S tatus SNOMED Code Notes Problem Supervision of other normal Z34.80 Ac tive [id number] ALLERGIES Allergen (clinical drug ingredient) Drug/Non Drug Allergy do cumented on EMR Reaction Allergy Type Onset Date Status Latex Unknown Non Drug Allergy Active ENCOUNTERS from 1986 to 2020-03-17 Encounter Location Date Provider Diagnosis [facility] [address] [place] [phone] Feb, Minesh Marshall 37 weeks gestation o f Z3A.37 and Maternal care for low transverse scar from previous delivery O34.211 IMMUNIZATIONS Vaccine [...] FOR REFERRAL No Information VITAL SIGNS Weight 184.8 lbs Feb, Weight-kg 83.82 kg Feb, Height 65 in Feb, BMI 30.752 kg/m2 Feb, Blood pressure systolic 122 mm Hg Feb, Blood pressure diastolic 86 mm Hg Feb, MEDICATIONS Medication SIG (Take, Route, Frequency, Duration) Notes Start Da te End Date Status Pepcid AC Maximum Strength 20 MG 1 tablet at bedtime a s needed Orally Once a day for 30 day(s) Feb, Active Vitamins 28-0.8 MG 1 tablet Orally Once a day Active PROCEDURES No Information RESULTS No Results REASON FOR VISIT 1WK PN & PRE OP SURG 03/21/20 MEDICAL (GENERAL) HISTORY Type Description Date Medical History anxiety depression Medical History asthma Medical History lupus Surgical History section x 3 Surgical History wisdom teeth Hospitalization History childbirth Goals Section No Information Health Concerns No Information MEDICAL EQUIPMENT No Information MENTAL STATUS No Information FUNCTIONAL STATUS No Information ASSESSMENTS Encounter Date Diagnosis Assessment Notes Treatment Notes Treatm ent Clinical Notes Feb, 37 weeks gestation of (ICD-10 - Z3A.37 ) Feb, Maternal care for low transv erse scar from previous delivery (ICD-10 - O34.211) PLAN OF TREATMENT Next Appt Details Provider Name:Minesh Marshall, 2020-03-21 07:30:00 AM, [address] [place] [address], [phone], Provider Name:Maria Mayes, 2020-03-21 07:30:00 AM, [address] [place] [address], [phone], Provider Name:Minesh Marshall, 2020-04-05 02:20:00 PM, [address] [place] [address], [phone], Provider Name:Minesh Marshall, 2020-05-15 09:40:00 AM, [address] [place] [address], [phone], Insurance Providers Payer Name Payer Address Payer Phone Insured Name Patient Relati onship to Insured Coverage Start Date Coverage End Date [employer] [address] [facility] [address] ROSEANNA MONTE self
--- OUTSIDE RECORDS SUMMARY | 2020-03-21 05:12 | CCD ---
Author Author [facility] Organization [facility] Address Unknown Phone Unavailable Care Team Providers Care Inventory Specialist Name Role Phone Marlyn Leonardo Unavailable PROBLEMS Type Condition ICD9-CM Code [id number] Code Onset Dates Condition S tatus SNOMED Code Notes Problem Supervision of other normal Z34.80 Ac tive [id number] ALLERGIES Allergen (clinical drug ingredient) Drug/Non Drug Allergy do cumented on EMR Reaction Allergy Type Onset Date Status Latex Unknown Non Drug Allergy Active ENCOUNTERS from 1986 to 2019-12-23 Encounter Location Date Provider Diagnosis [facility] [address] [place] [phone] Nov, Marlyn Leonardo Maternal care due to low transverse uterine scar from previous delivery O34.211 and 23 weeks gestation of Z3A.23 IMMUNIZATIONS No Information SOCIAL HISTORY Tobacco Use: [...] FOR REFERRAL No Information VITAL SIGNS Weight 164 lbs Nov, Height 65 in Nov, BMI 27.291 kg/m2 Nov, Blood pressure systolic 122 mm Hg Nov, Blood pressure diastolic 68 mm Hg Nov, MEDICATIONS Medication SIG (Take, Route, Frequency, Duration) Start Date En d Date Status Vitamins 28-0.8 MG 1 tablet [...] STATUS No Information ASSESSMENTS Encounter Date Diagnosis Notes Nov, 23 weeks gestation of (ICD-10 - Z3A.23) Nov, Maternal care due to low tra nsverse uterine scar from previous delivery (ICD-10 - O34.211) PLAN OF TREATMENT Treatment Notes Test Name Order Date CBC - Complete Blood Count 2019-12-23 AB SCREEN (INDIRECT TAB)GEL Antibody Screen 2019-12 Type and Screen (D Rh Antibody Screen) 2019-12-23 Glucose Challenge Test 1 Hour 2019-12-23 Next Appt Details 4 Weeks Reason:return ob Provider Name:Michelle Pringle, 2019-12 09:00:00 AM, [address] [place] [address], [phone], Provider Name:Minesh Marshall, 2020-03-21 07:30:00 AM, [address] [place] [address], [phone], Provider Name:Maria Mayes, 2020-03-21 07:30:00 AM, [address] [place] [address], [phone], Follow Up:4 Weeksreturn ob Insurance Providers Payer Name Payer Address Payer Phone Insured Name Patient Relati onship to Insured Coverage Start Date Coverage End Date [facility] [employer] DE[employer] [address] [facility] [phone] ALLISON MONTE self
[2020-03-21 06:24] LABS: HEMATOCRIT 32.9 % (36.0-47.0); HEMOGLOBIN 11.5 g/dl (12.0-15.5); MEAN CORPUSCULAR VOLUME 94.3 fl (80.0-96.0); PLATELET COUNT, AUTOMATED 198 10^3/uL (150-450); RED BLOOD COUNT 3.49 10^6/uL (4.00-5.40); WHITE BLOOD COUNT 10.5 10^3/uL (4.0-10.0)
[2020-03-21] MEDS ORDERED: LACTATED RINGER'S 1000 ML IV STA (07:06)
--- NOTE | 2020-03-21 07:20 | HPEPDOC ---
Obstetrical History & Physical General Date of Admission Mar 21, 2020 at 05:08 History of Present Illness 34 yo female at 39 0/7 weeks gestation by 7 week ultrasound (EDC=03/28/2020) presents for repeat and TL. H/o 3 prior sections. Information Provided By: Patient Age: 34 : 3 Term: 3 Pre-term: 0 Abortions: 0 Livin Care Care: Good Care Dating Final EDC by: 1st trimester (US) Estimated Date of Confinement: Mar 28, 2020 Past Medical History Past Medical History Medical History section x 3 Family History Significant Family History: No pertinent family hx Social History Family situation: Spouse/partner home Psychosocial History: No pertinent psych hx Allergies Coded Allergies: Latex, Natural Rubber (Verified Allergy, Intermediate, swelling, itchy, 03/14/20) Medications Scheduled Famotidine (Famotidine) 20 Mg Tablet, 20 MG PO DAILY No122/Iron/Folic Acid ( Multi Tablet) 1 Each Tablet, 1 TAB PO DAILY Physical Examination Physical Examination GENERAL: Alert and oriented times three. BREAST: . ABDOMEN: Gravid and non-tender to touch. FETUS: Is vertex (VTX) by sterile vaginal examination (SVE), fetus is vertex (VTX) by Jason. HEART RATE: Regular rate and rhythm. LUNGS: Clear to auscultation (CTA). EXTREMITIES: No edema. No clonus. Deep tendon reflexes (DTRs) + . Vital Signs/I&O Vital Signs Date Time Temp Pulse Resp B/P (MAP) Pulse Ox O2 Delivery O2 Flow Rate FiO2 03/21/20 05:34 97.6 82 123/65 (84) Laboratory Data 24H LABS Laboratory Tests 2 03/20/20 22:37: Serology Scanned Report Hepatitis B Testing 03/21/20 05:50: Nucleated Red Blood Cells % (auto) 0.0 CBC/BMP Laboratory Tests 03/21/20 05:50 Pertinent Laboratoy Data Blood Type: B+ Assessment Variability: Moderate Accelerations: Positive Decelerations: None Tocometer Contractions: No Assessment/Plan Assessment Pt is a 34-year-old (G)4 para (P)3 at 39+0 weeks by 7-week ultrasound presents to Labor and Delivery for repeat section. Plan Admit and orient. Special Agent Secret Service and consent. Consent signed Plans tubal ligation NA EVANS MD Mar 21, 2020 07:20
[2020-03-21] MEDS ORDERED: ceFAZolin SOD 2 GM in IV 1 EA IV ONE (07:30)
[2020-03-21] MEDS ORDERED: BICITRA 30ML SOLN UDC PO ONE (07:30)
[2020-03-21] MEDS ORDERED: LR 1,000 ML IV SCH ×2 (08:00→09:15)
[2020-03-21] MEDS ORDERED: METOCLOPRAMIDE INJ 10MG/2ML VIAL (J2765 PER 1) IV PRN (08:02)
[2020-03-21] MEDS ORDERED: NALBUPHINE HCL 10 MG/ML AMP (J2300) IV PRN ×2 (08:02→09:15)
[2020-03-21] MEDS ORDERED: NALOXONE INJ 0.4MG/1ML VIAL (J2310 PER 1MG) IV PRN ×2 (08:02)
[2020-03-21] MEDS ORDERED: diphenhydrAMINE 50MG/ML VIAL (J1200) IV PRN (08:02)
[2020-03-21] MEDS ORDERED: ONDANSETRON 4MG/2ML VIAL IV PRN ×3 (08:02→09:15)
[2020-03-21] MEDS ORDERED: OXYTOCIN INJ 10 UNITS/ML VIAL (J2590) As Ordered ONE (08:16)
[2020-03-21] MEDS ORDERED: PHENYLephrine 500MCG 5ML (100MCG/ML) SYRINGE As Ordered ONE (08:17)
[2020-03-21] MEDS ORDERED: dexameTHASONE 4 MG/ML 1ML VIAL (J1100 PER 1MG) As Ordered ONE (08:30)
[2020-03-21] MEDS ORDERED: ONDANSETRON 4MG/2ML VIAL As Ordered ONE (08:30)
[2020-03-21] MEDS ORDERED: MORPHINE PRES-FREE INJ 10 MG/10 ML VIAL (J2274) As Ordered ONE (08:40)
[2020-03-21] MEDS ORDERED: fentaNYL 100 MCG/2 ML INJECTION (J3010) As Ordered ONE (08:40)
[2020-03-21] MEDS ORDERED: KETOROLAC 60MG 2ML VIAL As Ordered ONE (08:46)
[2020-03-21] MEDS ORDERED: OXYTOCIN DRIP 30 UNITS in IV 1 EA IV SCH (08:58)
[2020-03-21] MEDS ORDERED: MEASLES,MUMPS,RUBELLA VACCINE INJ (MMR-II) (90707) SC SCH (09:00)
[2020-03-21] MEDS: PRENATAL VITAMINS CHEWABLE TABLET PO SCH (09:00)
[2020-03-21] MEDS ORDERED: DOCUSATE SODIUM 100MG CAPSULE PO PRN (09:00)
[2020-03-21] MEDS ORDERED: PERCOCET 5MG/325MG TAB PO PRN (09:00)
[2020-03-21] MEDS ORDERED: RHOGAM 300 MCG (1500 IU) INJ (J2790) IM SCH (09:00)
[2020-03-21] MEDS ORDERED: fentaNYL 100 MCG/2 ML INJECTION (J3010) IV PRN (09:15)
[2020-03-21] MEDS ORDERED: OXYTOCIN 30 UNITS IN 0.9% NaCl 500ML IV BAG (J2590) As Ordered ONE (09:26)
[2020-03-21] MEDS: LR 1,000 ML IV SCH ×2 (09:31→16:58)
[2020-03-21] MEDS ORDERED: PERCOCET 5MG/325MG TAB As Ordered ONE (09:37)
--- NOTE | 2020-03-21 09:48 | ROOPDOC ---
[facility] Report Of Operation Report of Operation DATE OF PROCEDURE: 03/21/20 Report of operation Preoperative diagnosis: 39 0/7 weeks gestation, prior section x 3 Postoperative diagnosis: same Procedure: Repeat low transverse section and bilateral tubal ligation. Surgeon: Na Evans M.D. Asst.: Maria Mayes CNM EBL: 500 ml. Urine output: 100 mL's. Findings: 7 lbs. 6 oz. male , Apgars 8 and 9 g normal uterus, fallopian tubes, ovaries. Operative summary: Patient taken to the operating room where spinal anesthesia was induced. She is prepped draped in a sterile fashion in the supine position. A Donahue catheter was placed. A Pfannenstiel skin incision was made with scalpel. Fascia was incised and extended bilaterally. The peritoneal cavity was entered. A Mobius retractor was placed. A bladder flap was created. A curvilinear incision was made in lower uterine segment until Clear fluid was noted. The incision was extended manually. The infant was delivered from the vertex position without difficulty. Cord was double clamped and cut. The was handed waiting nurses. . The placenta was expressed. Uterus was closed with O- Vicryl in a running locked fashion. A second imbricating layer of Vicryl was placed. Attention was turned to the fallopian tubes. A Daniel clamp was used to grasp the fallopian tubes at the midportion.. A window was created in the broad ligament free tie of 2-0 chromic was placed around the segment of tube on either side of the clamp. A Segment of tube was excised bilaterally and sent to pathology. Peritoneum was closed with 2-0 Vicryl a running fashion. Fascia was closed with 0 Vicryl in running fashion. Skin was closed 4-0 Vicryl subcuticular sutures. Sponge, instrument and needle counts were correct. Maria Mayes CNM, assisted with all aspects of the procedure. She helped each layer of the incision and deliver the fetus. NA EVANS MD Mar 21, 2020 09:48
[2020-03-21] MEDS: KETOROLAC 30 MG/ML 1ML VIAL IV SCH ×2 (14:28→20:48)
[2020-03-22 02:00] VITALS: BP 110/61
[2020-03-22] MEDS: KETOROLAC 30 MG/ML 1ML VIAL IV SCH (02:26)
[2020-03-22 06:00] VITALS: BP 101/52
[2020-03-22 07:16] LABS: HEMATOCRIT 24.7 % (36.0-47.0); MEAN CORPUSCULAR HEMOGLOBIN 32.3 pg (27.0-33.0); PLATELET COUNT, AUTOMATED 139 10^3/uL (150-450); WHITE BLOOD COUNT 9.5 10^3/uL (4.0-10.0)
[2020-03-22 07:20] LABS: HEMOGLOBIN 8.4 g/dl (12.0-15.5)
[2020-03-22] MEDS: PRENATAL VITAMINS CHEWABLE TABLET PO SCH (08:34)
[2020-03-22] MEDS: PERCOCET 5MG/325MG TAB PO PRN ×3 (09:00→22:23)
[2020-03-22 10:00] VITALS: BP 111/63
[2020-03-22] MEDS: IBUPROFEN 800 MG TAB PO SCH ×2 (10:33→18:24)
[2020-03-22] MEDS ORDERED: OXYC1TAB23 PO (13:43)
[2020-03-22] MEDS ORDERED: IBUP80TA PO (13:44)
[2020-03-22 14:00] VITALS: BP 110/69
[2020-03-22 18:00] VITALS: BP 124/73
[2020-03-22 22:00] VITALS: BP 106/56
[2020-03-23 02:00] VITALS: BP 106/55
[2020-03-23] MEDS: IBUPROFEN 800 MG TAB PO SCH ×2 (03:05→10:24)
[2020-03-23 06:00] VITALS: BP 97/86
[2020-03-23] MEDS: PERCOCET 5MG/325MG TAB PO PRN (06:21)
--- NOTE | 2020-03-23 07:35 | DSES ---
DISCHARGE SUMMARY DATE OF ADMISSION: 03/21/2020 DATE OF DISCHARGE: 03/23/2020 DISCHARGE DIAGNOSIS: Repeat section with tubal ligation. Postop day 2 stable condition. SURGEON: Minesh Marshall MD FELT HOOKER: Maria Mayes CNM HISTORY: Dania is a 34-year-old 4, para 4-0-0-4 now who underwent repeat section with a tubal ligation at term. Her surgery was uncomplicated. She did deliver a live male weighing 7 pounds 6 ounces. Apgars were 8 and 9. Her estimated blood loss was 500 mL. Her postoperative course has been uncomplicated. She has been out of bed for self-care, pericare, and infant care. She is well. Her pain has been well managed by p.o. pain medications. She is tolerating a regular diet and p.o. fluids, voiding without difficulty, and passing flatus. DISCHARGE PHYSICAL EXAMINATION: VITAL SIGNS: Temperature 97.9, pulse 83, respiratory 16, blood pressure 97/86. GENERAL APPEARANCE: She is alert and oriented x3. BREASTS: Soft and nontender. Nipples intact. ABDOMEN: Fundus firm at one fingerbreadth below the umbilicus. The incision has the Optifoam dressing in place and there is no new drainage observed. PELVIC: Her perineum is intact with lochia ruborous scant. EXTREMITIES: Bilateral lower extremities with scant pitting edema. DISCHARGE PLAN: Discharge the patient to home. She is to [facility] for a two week incision check and an eight week visit. Her pain medications for Percocet and ibuprofen have been E-prescribed to her pharmacy by Dr. Minesh Marshall. I did review discharge instructions that include breast care, incision care, pericare, pelvic rest, activity and living restrictions, danger signs to report, and access to her care provider. All of her questions and her partner's questions have been answered, and they do request discharge to home.
[2020-03-23] MEDS: PRENATAL VITAMINS CHEWABLE TABLET PO SCH (08:27)
== END 2020-03-23 12:30 | disposition home or self-care (01) | DRG 540 ==
LOC: M LDI 05:08 → M OBS 10:17
PROVIDERS: ADMIT Specialist; ATTEND Specialist
PROC: 0UB70ZZ Excision of Bilateral Fallopian Tubes, Open Approach (ICD-10-PCS; 2020-03-21)
PROC: 10D00Z1 Extraction of Products of Conception, Low, Open Approach (ICD-10-PCS; principal; 2020-03-21 07:30)
DX: O34.211 Maternal care for low transverse scar from previous cesarean delivery (principal); Z30.2 Encounter for sterilization; Z3A.39 39 weeks gestation of pregnancy; Z37.0 Single live birth